=== PATIENT | male | born 1975 | race Two or more races ===

== ENCOUNTER 2018-07-06 21:30 | Emergency (ER) | payer MEDICAID ==
[~2018-07-06] VITALS: Ht 165.1 cm; Wt 79.4 kg
--- NOTE | 2018-07-06 21:48 | NUR ---
ED Nurse Note: pt walked in c/o left lower leg pain, pt states he was playing soccer earlier and somebody kicked his leg and started having pain since then. no obvious injury noted, skin intact, cms intact BLE, will cont monitor.
[2018-07-06] MEDS ORDERED: IBUPROFEN600 MG ORAL (22:52)
[2018-07-06] MEDS ORDERED: ACETAMINOPHEN-1 EAC1 ORAL (22:52)
[2018-07-06 23:00] VITALS: BP 128/97
--- NOTE | 2018-07-06 23:00 | NUR ---
ED Nurse Note: pt cleared to be d/c per ERMD, pt discharge and aftercare instruction provided w/ prescription, pt education done via discussion and handout, pt advised to follow up with pcp or return to ed if changes in condition, pt verbalized understanding and agrees with plan, vss, ambulatory w/ steady gait, left w/ all belongings. pt accompanied by .
--- NOTE | 2018-07-06 23:06 | Emergency Room Report ---
History of Present Illness General Chief Complaint: Lower Extremity Injury Source: Patient Present Illness HPI 43-year-old male presents ED for evaluation. Complaining of left calf pain. States that he was kicked in the left calf one week ago while playing soccer. He is having persistent pain since. Pain is dull, 7 out of 10, nonradiating. Is able to walk but with difficulty. Denies any other injuries. No other aggravating relieving factors. Denies any other associated symptoms Allergies: Coded Allergies: No Known Allergies (Unverified , 07/06/18) Patient History Past Medical History: HTN Past Surgical History: none Pertinent Family History: none Social History: Denies: smoking, alcohol use, drug use Immunizations: UTD Reviewed Nursing Documentation: PMH: Agreed; PSxH: Agreed Nursing Documentation-PMH Past Medical History: No History, Except For Hx Hypertension: Yes Review of Systems All Other Systems: negative except mentioned in HPI Physical Exam Vital Signs Date Time Temp Pulse Resp B/P (MAP) Pulse Ox O2 Delivery O2 Flow Rate FiO2 07/06/18 21:34 98.2 73 14 95 Room Air 07/06/18 23:00 128/97 Sp02 EP Interpretation: reviewed, normal General Appearance: no apparent distress, alert, GCS 15, non-toxic Head: normocephalic Eyes: bilateral eye normal inspection, bilateral eye PERRL ENT: normal ENT inspection Neck: normal inspection Respiratory: normal inspection Cardiovascular #1: normal inspection Gastrointestinal: normal inspection Rectal: deferred Genitourinary: no CVA tenderness Musculoskeletal: calf tenderness - left Neurologic: alert, oriented x3, responsive, motor strength/tone normal, sensory intact, speech normal Psychiatric: normal inspection Skin: normal inspection Lymphatic: normal inspection Medical Decision Making Diagnostic Impression: Primary Impression: Injury of calf ER Course Hospital Course 43 yo M presents to ED c/o L calf pain s/p kicked in calf Differential diagnoses include: Fracture, dislocation, sprain, contusion Clinical course Patient placed on stretcher. After initial history and physical, I ordered pain medications and Xrays of L tibfib Xrays read shows no acute fracture/dislocation. Negative Sanchez test. No sign of Achilles rupture. Pain appears to be muscular. Discussed findings with patient. May benefit from outpatient or through evaluation and possible MRI. We'll provide ortho referrals. Given crutches Diagnosis - injury of calf Stable and discharged to home with prescription for Motrin, tylenol #3. weight bear as tolerated. Followup with PMD/ortho. Return to ED if symptoms recur or worsen Other X-Ray Diagnostic Results Other X-Ray Diagnostic Results : X-Ray ordered: L tibfib # of Views/Limited Vs Complete: 2 View Indication: Pain EP Interpretation: Yes Interpretation: no dislocation, no soft tissue swelling, no fractures Impression: No acute disease Electronically Signed by: Electronically signed by Drew Bains MD Last Vital Signs Date Time Temp Pulse Resp B/P (MAP) Pulse Ox O2 Delivery O2 Flow Rate FiO2 07/06/18 23:00 98.3 87 18 128/97 100 Room Air Status: improved Disposition: HOME, SELF-CARE Condition: Stable Scripts Acetaminophen With Codeine (T#3) (TYLENOL #3 TAB*) Y Tab 1 TAB ORAL Q8H PRN for For Pain for 3 Days, TAB Prov: Drew Bains MD 07/06/18 Ibuprofen* (MOTRIN*) 600 Mg Tablet 600 MG ORAL Q8H PRN for For Pain, #30 TAB 0 Refills Prov: Drew Bains MD 07/06/18 [facility] Open 24 hour /7 days a week by Appointment Only [address] [place] [id number] Patient Instructions: Muscle Strain, [id number] Drew Bains MD July 06, 2018 23:06
--- NOTE | 2018-07-07 23:53 | Diagnostic Imaging Report ---
EXAM: XR Left Tibia and Fibula, 2 Views CLINICAL HISTORY: PAIN TECHNIQUE: Frontal and lateral views of the left tibia and fibula. COMPARISON: No relevant prior studies available. FINDINGS: Bones/joints: No acute fracture. Soft tissues: No radiodense foreign body. IMPRESSION: No acute fracture.
== END 2018-07-06 23:00 | disposition home or self-care (01) ==
LOC: EMR 22:00
DX: S89.92XA Unspecified injury of left lower leg, initial encounter (principal); W50.1XXA Accidental kick by another person, initial encounter; Y93.66 Activity, soccer; Y92.9 Unspecified place or not applicable; I10 Essential (primary) hypertension
CPT/HCPCS: 99283

== ENCOUNTER 2018-08-13 18:01 | Inpatient (IN) | payer MEDICAID ==
[~2018-08-13] VITALS: Ht 165.1 cm; Wt 83.6 kg
[~2018-08-13 18:01] MED LIST: ACETAMINOPHEN-1 EAC1 ORAL; IBUPROFEN600 MG ORAL; LR 1000ml ONE; NS Irrig 1000ml ONE; Sterile Water Irrig 1000ml IRRIG ONE
[2018-08-13] MEDS ORDERED: Lidocaine 2% Visc 15ml soln ORAL ONE (18:15)
[2018-08-13] MEDS ORDERED: Mylanta II UD 30ml ORAL ONE (18:15)
[2018-08-13] MEDS ORDERED: Dicyclomine HCl 10mg/5ml oral soln ORAL ONE (18:15)
[2018-08-13 18:20] VITALS: BP 142/90
--- NOTE | 2018-08-13 18:20 | NUR ---
ED Nurse Note: pt walked in to ER from home due to abdominal pain 12/12 which started 0100 this morning. pt denied N/V/D and consuming food which might cause pain. pt aao x4 and ambulatory. skin clean and intact.
--- NOTE | 2018-08-13 18:36 | Emergency Room Report ---
History of Present Illness General Chief Complaint: Abdominal Pain Source: Patient Present Illness HPI Patient presents with complaints of mid abdominal pain fairly diffuse started last night Denies any vomiting or diarrhea patient reports that he was unable to sleep last night as the pain persisted he presents to the ER denies any constipation denies any recent trauma denies any chest pain or shortness of breath Pain is cramping and sharp 5 out of 10 Allergies: Coded Allergies: No Known Allergies (Unverified , 07/06/18) Patient History Past Medical History: see triage record Pertinent Family History: none Reviewed Nursing Documentation: PMH: Agreed; PSxH: Agreed Nursing Documentation-PMH Past Medical History: No History, Except For Hx Hypertension: Yes Review of Systems All Other Systems: negative except mentioned in HPI Physical Exam Vital Signs Date Time Temp Pulse Resp B/P (MAP) Pulse Ox O2 Delivery O2 Flow Rate FiO2 08/13/18 18:08 98.2 74 20 138/91 (107) 100 Room Air Sp02 EP Interpretation: reviewed, normal General Appearance: well appearing, no apparent distress Head: normocephalic, atraumatic Eyes: bilateral eye PERRL, bilateral eye EOMI ENT: hearing grossly normal, normal pharynx, TMs + canals normal, uvula midline Neck: full range of motion, supple, no meningismus, no bony tend Respiratory: lungs clear, normal breath sounds, no rhonchi, no respiratory distress, no retraction, no accessory muscle use Cardiovascular #1: normal peripheral pulses, regular rate, rhythm, no edema, no gallop, no JVD, no murmur Gastrointestinal: normal bowel sounds, non tender - However subjectively points to mid epigastric region, soft, no mass, no organomegaly, non-distended, no guarding, no hernia, no pulsatile mass, no rebound Genitourinary: no CVA tenderness Musculoskeletal: back normal Neurologic: oriented x3, responsive, manager pet III-XII nml as tested, motor strength/ tone normal, sensory intact Psychiatric: mood/affect normal Skin: normal color, no rash, warm/dry, palpation normal Lymphatic: normal inspection, no adenopathy Procedures Critical Care Time Critical Care Time 40 minutes for critical findings, concern for endorgan injury failure, possible not including any procedural time Medical Decision Making Diagnostic Impression: Primary Impression: Acute appendicitis ER Course Patient is a fairly complex case, with multiple differentials, including but not limited to, cardiac, cardiopulmonary, vascular emergencies. Patient has extensive labs and imaging studies initiated. Other differentials such as cholecystitis, appendicitis, colitis considered patient's blood work reveals elevatedWhite blood cell count CT results shows evidence of acute appendicitis Antibiotics are initiated general surgery is also contacted patient Nothing by mouth and admitted for further care Labs Test 08/13/18 18:20 08/14/18 05:20 08/15/18 05:54 White Blood Count 22.1 K/UL (4.8-10.8) 14.4 K/UL (4.8-10.8) 9.0 K/UL (4.8-10.8) Red Blood Count 4.68 M/UL (4.70-6.10) 4.41 M/UL (4.70-6.10) 4.08 M/UL (4.70-6.10) Hemoglobin 14.4 G/DL (14.2-18.0) 13.7 G/DL (14.2-18.0) 12.6 G/DL (14.2-18.0) Hematocrit 39.8 % (42.0-52.0) 38.0 % (42.0-52.0) 35.7 % (42.0-52.0) Mean Corpuscular Volume 85 FL (80-99) 86 FL (80-99) 87 FL (80-99) Mean Corpuscular Hemoglobin 30.7 PG (27.0-31.0) 31.1 PG (27.0-31.0) 30.8 PG (27.0-31.0) Mean Corpuscular Hemoglobin Concent 36.1 G/DL (32.0-36.0) 36.0 G/DL (32.0-36.0) 35.3 G/DL (32.0-36.0) Red Cell Distribution Width 11.5 % (11.6-14.8) 11.6 % (11.6-14.8) 11.7 % (11.6-14.8) Platelet Count 279 K/UL (150-450) 232 K/UL (150-450) 213 K/UL (150-450) Mean Platelet Volume 6.6 FL (6.5-10.1) 6.9 FL (6.5-10.1) 7.0 FL (6.5-10.1) Neutrophils (%) (Auto) % (45.0-75.0) % (45.0-75.0) % (45.0-75.0) Lymphocytes (%) (Auto) % (20.0-45.0) % (20.0-45.0) % (20.0-45.0) Monocytes (%) (Auto) % (1.0-10.0) % (1.0-10.0) % (1.0-10.0) Eosinophils (%) (Auto) % (0.0-3.0) % (0.0-3.0) % (0.0-3.0) Basophils (%) (Auto) % (0.0-2.0) % (0.0-2.0) % (0.0-2.0) Differential Total Cells Counted 100 100 Neutrophils % (Manual) 82 % (45-75) 94 % (45-75) Lymphocytes % (Manual) 8 % (20-45) 3 % (20-45) Monocytes % (Manual) 5 % (1-10) 1 % (1-10) Eosinophils % (Manual) 0 % (0-3) 0 % (0-3) Basophils % (Manual) 0 % (0-2) 0 % (0-2) Band Neutrophils 5 % (0-8) 2 % (0-8) Platelet Estimate Adequate Adequate Platelet Morphology Normal Normal Red Blood Cell Morphology Normal Normal Sodium Level 136 MMOL/L (136-145) 137 MMOL/L (136-145) 139 MMOL/L (136-145) Potassium Level 3.4 MMOL/L (3.5-5.1) 3.5 MMOL/L (3.5-5.1) 3.8 MMOL/L (3.5-5.1) Chloride Level 100 MMOL/L (98-107) 104 MMOL/L (98-107) 106 MMOL/L (98-107) Carbon Dioxide Level 21 MMOL/L (21-32) 25 MMOL/L (21-32) 22 MMOL/L (21-32) Anion Gap 15 mmol/L (5-15) 8 mmol/L (5-15) 11 mmol/L (5-15) Blood Urea Nitrogen 13 mg/dL (7-18) 13 mg/dL (7-18) 16 mg/dL (7-18) Creatinine 1.4 MG/DL (0.55-1.30) 1.3 MG/DL (0.55-1.30) 1.3 MG/DL (0.55-1.30) Estimat Glomerular Filtration Rate 55.6 mL/min (>60) > 60 mL/min (>60) > 60 mL/min (>60) Glucose Level 111 MG/DL (74-106) 104 MG/DL (74-106) 130 MG/DL (74-106) Calcium Level 9.2 MG/DL (8.5-10.1) 8.9 MG/DL (8.5-10.1) 8.3 MG/DL (8.5-10.1) Total Bilirubin 1.6 MG/DL (0.2-1.0) Direct Bilirubin 0.3 MG/DL (0.0-0.3) Aspartate Amino Transf (AST/SGOT) 32 U/L (15-37) Alanine Aminotransferase (ALT/SGPT) 56 U/L (12-78) Alkaline Phosphatase 62 U/L (46-116) Total Protein 8.0 G/DL (6.4-8.2) Albumin 4.5 G/DL (3.4-5.0) Globulin 3.5 g/dL Albumin/Globulin Ratio 1.3 (1.0-2.7) Lipase 112 U/L (73-393) Prothrombin Time 9.9 SEC (9.30-11.50) 9.7 SEC (9.30-11.50) Prothromb Time International Ratio 0.9 (0.9-1.1) 0.9 (0.9-1.1) Activated Partial Thromboplast Time 29 SEC (23-33) 27 SEC (23-33) Rhythm Strip Diag. Results EP Interpretation: yes Rate: 80 Rhythm: NSR, no PVC's, no ectopy CT/MRI/US Diagnostic Results CT/MRI/US Diagnostic Results : Impression CT abdomen pelvisImpression: Positive for uncomplicated acute appendicitis Fatty liver Subcentimeter low-attenuation left renal lesions, too small to characterize, most likely benign simple cysts. No further follow-up necessary Dependent basilar pulmonary atelectatic changes Last Vital Signs Date Time Temp Pulse Resp B/P (MAP) Pulse Ox O2 Delivery O2 Flow Rate FiO2 08/13/18 18:08 98.2 74 20 138/91 (107) 100 Room Air Status: improved Disposition: ADMITTED INPATIENT Condition: Serious Carlos Miner DO Aug 13, 2018 18:36
--- NOTE | 2018-08-13 18:40 | NUR ---
ED Nurse Note: pt signed on CT with constrast with fully understanding.
[2018-08-13] MEDS ORDERED: Ketorolac 30mg Inj IV ONE (18:45)
[2018-08-13] MEDS ORDERED: Isovue-300 100ml vial INJ PRN (18:45)
[2018-08-13 18:50] LABS: ANION GAP 15 mmol/L (5-15); BLOOD UREA NITROGEN 13 mg/dL (7-18); CALCIUM 9.2 MG/DL (8.5-10.1); CARBON DIOXIDE 21 MMOL/L (21-32); CHLORIDE 100 MMOL/L (98-107); CREATININE 1.4 MG/DL (0.55-1.30); HEMATOCRIT 39.8 % (42.0-52.0); HEMOGLOBIN 14.4 G/DL (14.2-18.0); MEAN CORPUSCULAR VOLUME 85 FL (80-99); PLATELET COUNT 279 K/UL (150-450); POTASSIUM 3.4 MMOL/L (3.5-5.1); RED BLOOD COUNT 4.68 M/UL (4.70-6.10); RED CELL DISTRIBUTION WIDTH 11.5 % (11.6-14.8); SODIUM 136 MMOL/L (136-145)
[2018-08-13 18:54] LABS: WHITE BLOOD COUNT 22.1 K/UL (4.8-10.8)
--- NOTE | 2018-08-13 18:55 | NUR ---
ED Nurse Note: pt went down to CT with stable condition.
[2018-08-13 19:00] LABS: ALANINE AMINOTRANSFERASE 56 U/L (12-78); ALBUMIN 4.5 G/DL (3.4-5.0); ALBUMIN/GLOBULIN RATIO 1.3 (1.0-2.7); ALKALINE PHOSPHATASE 62 U/L (46-116); ASPARTATE AMINO TRANSFERASE 32 U/L (15-37); BILIRUBIN,TOTAL 1.6 MG/DL (0.2-1.0)
[2018-08-13 19:01] LABS: BILIRUBIN,DIRECT 0.3 MG/DL (0.0-0.3)
[2018-08-13 19:10] VITALS: BP 153/95
--- NOTE | 2018-08-13 19:12 | NUR ---
ED Nurse Note: pt came back from CT scan in stable condition.
--- NOTE | 2018-08-13 19:15 | NUR ---
HAND-OFF: Report given to DONNY Escobar. pt just came back from CT in stable condition and no orders to carry at this moment.
--- NOTE | 2018-08-13 19:18 | NUR ---
ED Nurse Note: Received report from Eyad Robles RN. Pt in bed awake with visitor at bedside. Pt states abdominal pain is 10/10 at this time. Will see when last pain Rx was administered and see if possible to get order from ER MD. Will continue to monitor.
--- NOTE | 2018-08-13 19:20 | NUR ---
ED Nurse Note: Pain Rx was just given. Will re-assess when due; see eMAR.
[2018-08-13] MEDS ORDERED: Piperacillin/Tazobactam 3.375 GM in NS 110 ML IVPB ONE (19:30)
--- NOTE | 2018-08-13 20:23 | NUR ---
ED Nurse Note: Pt awake, talking to his visitor. No distress noted. IVPB Zosyn complete. Will continue to monitor.
[2018-08-13 20:30] VITALS: BP 140/80
[2018-08-13] MEDS ORDERED: Mylanta II UD 30ml ORAL PRN (20:40)
[2018-08-13] MEDS ORDERED: Morphine Sulfate 2mg/ml Inj(IV/IM USE ONLY) IVP PRN ×2 (20:42)
[2018-08-13] MEDS ORDERED: Milk of Magnesia 30ml Ud ORAL PRN (21:00)
--- NOTE | 2018-08-13 21:20 | NUR ---
TRANSFER TO FLOOR: Patient transferred to [facility] as ordered, per MD Eisenberg. Report given to Roque HINES. Belongings and medications given to Roque HINES. Family at bedside during time of transfer.
[2018-08-13] MEDS: NS w/KCl 20mEq 1000ml 1,000 ML IV SCH (22:00)
[2018-08-13] MEDS: Morphine Sulfate 4mg/ml Inj (IV USE ONLY) IVP PRN (22:52)
--- NOTE | 2018-08-13 23:20 | NUR ---
NURSE NOTES: Patient admitted on the floor via gurney accompanied by RN. Admission orders done. MD notified of patients arrival on the floor. PRN pain medication given for 8/10 lower abdominal pain. Belongings list signed by patient. NPO status reinforced to patient. Needs attended. Due meds given. IV fluids tolerated well. Call light within reach. Bed is locked and in low position. In stable condition.
[2018-08-14] VITALS (15 sets, daily range): BP systolic 110–140; BP diastolic 54–94
--- NOTE | 2018-08-14 00:47 | NUR ---
NURSE NOTES: Unable to complete med recon. Patient and family doesn't remember patients medications he's taking at home. Per patient a family member will bring his medications tomorrow morning.
[2018-08-14] MEDS: Morphine Sulfate 4mg/ml Inj (IV USE ONLY) IVP PRN ×2 (04:44→09:05)
[2018-08-14] MEDS: Piperacillin/Tazobactam 3.375 GM in NS 110 ML IVPB SCH ×3 (05:04→21:34)
[2018-08-14 06:58] LABS: HEMOGLOBIN 13.7 G/DL (14.2-18.0); MEAN CORPUSCULAR VOLUME 86 FL (80-99); PLATELET COUNT 232 K/UL (150-450); RED BLOOD COUNT 4.41 M/UL (4.70-6.10); RED CELL DISTRIBUTION WIDTH 11.6 % (11.6-14.8); WHITE BLOOD COUNT 14.4 K/UL (4.8-10.8)
[2018-08-14 07:12] LABS: ANION GAP 8 mmol/L (5-15); BLOOD UREA NITROGEN 13 mg/dL (7-18); CALCIUM 8.9 MG/DL (8.5-10.1); CARBON DIOXIDE 25 MMOL/L (21-32); CHLORIDE 104 MMOL/L (98-107); CREATININE 1.3 MG/DL (0.55-1.30); POTASSIUM 3.5 MMOL/L (3.5-5.1); SODIUM 137 MMOL/L (136-145)
--- NOTE | 2018-08-14 07:30 | NUR ---
NURSE NOTES: Patient lying in bed awake. Complain of pain 8/10 and will give pain medication as ordered. Skin intact and dry. IV dressing intact and dry. Bed lowest position. Call light within reach. Will continue to monitor.
[2018-08-14 07:34] LABS: INR 0.9 (0.9-1.1)
[2018-08-14] MEDS: NS w/KCl 20mEq 1000ml 1,000 ML IV SCH (08:48)
--- NOTE | 2018-08-14 10:08 | GI Initial Consult Note ---
History of Present Illness General Date patient seen: Aug 14, 2018 Time patient seen: 10:04 Reason for Hospitalization: Abdominal Pain Referring physician: NOÉ DE LA FUENTE Reason for Consultation: Abdominal Pain Present Illness HPI Patient presents with complaints of mid abdominal pain fairly diffuse started last night Denies any vomiting or diarrhea patient reports that he was unable to sleep last night as the pain persisted he presents to the ER denies any constipation denies any recent trauma denies any chest pain or shortness of breath Pain is cramping and sharp 5 out of 10 GI consulted for abdominal pain. Patient was seen, awake alert and oriented x4 no apparent distress. The patient has complaint of severe abdominal pain, tender to touch in all quadrants on exam. Patient states his initial onset began approximately 3 days ago. Has no prior episodes of similar abdominal pain. Patient denies any nausea vomiting. Denies any diarrhea or constipation. Abdomen is soft, nondistended. Patient has no history of endoscopic or colonoscopy. Labs reviewed; WBC 14.4, no anemia, no transaminitis. Home Meds Active Scripts Acetaminophen With Codeine (T#3) (TYLENOL #3 TAB*) Y Tab, 1 TAB ORAL Q8H PRN for For Pain for 3 Days, TAB Prov:Drew Bains MD 07/06/18 Ibuprofen* (MOTRIN*) 600 Mg Tablet, 600 MG ORAL Q8H PRN for For Pain, #30 TAB 0 Refills Prov:Drew Bains MD 07/06/18 Med list reviewed/reconciled: Yes Allergies: Coded Allergies: No Known Allergies (Unverified , 07/06/18) Patient History History Provided By: Patient, Medical Record PMH Narrative Past Medical History: see triage record Pertinent Family History: none Reviewed Nursing Documentation: PMH: Agreed; PSxH: Agreed Nursing Documentation-PMH Past Medical History: No History, Except For Hx Hypertension: Yes Social History: Denies: smoking, alcohol use, drug use, other Review of Systems All Other Systems: negative except mentioned in HPI Physical Exam Vital Signs Date Time Temp Pulse Resp B/P (MAP) Pulse Ox O2 Delivery O2 Flow Rate FiO2 08/13/18 18:08 98.2 74 20 138/91 (107) 100 Room Air Sp02 EP Interpretation: reviewed, normal Labs Laboratory Tests Test 08/13/18 18:20 08/14/18 05:20 White Blood Count 22.1 K/UL (4.8-10.8) *H 14.4 K/UL (4.8-10.8) H Red Blood Count 4.68 M/UL (4.70-6.10) L 4.41 M/UL (4.70-6.10) L Hemoglobin 14.4 G/DL (14.2-18.0) 13.7 G/DL (14.2-18.0) L Hematocrit 39.8 % (42.0-52.0) L 38.0 % (42.0-52.0) L Mean Corpuscular Volume 85 FL (80-99) 86 FL (80-99) Mean Corpuscular Hemoglobin 30.7 PG (27.0-31.0) 31.1 PG (27.0-31.0) H Mean Corpuscular Hemoglobin Concent 36.1 G/DL (32.0-36.0) H 36.0 G/DL (32.0-36.0) Red Cell Distribution Width 11.5 % (11.6-14.8) L 11.6 % (11.6-14.8) Platelet Count 279 K/UL (150-450) 232 K/UL (150-450) Mean Platelet Volume 6.6 FL (6.5-10.1) 6.9 FL (6.5-10.1) Neutrophils (%) (Auto) % (45.0-75.0) % (45.0-75.0) Lymphocytes (%) (Auto) % (20.0-45.0) % (20.0-45.0) Monocytes (%) (Auto) % (1.0-10.0) % (1.0-10.0) Eosinophils (%) (Auto) % (0.0-3.0) % (0.0-3.0) Basophils (%) (Auto) % (0.0-2.0) % (0.0-2.0) Differential Total Cells Counted 100 Neutrophils % (Manual) 82 % (45-75) H Pending Lymphocytes % (Manual) 8 % (20-45) L Pending Monocytes % (Manual) 5 % (1-10) Eosinophils % (Manual) 0 % (0-3) Basophils % (Manual) 0 % (0-2) Band Neutrophils 5 % (0-8) Platelet Estimate Adequate Pending Platelet Morphology Normal Pending Red Blood Cell Morphology Normal Sodium Level 136 MMOL/L (136-145) 137 MMOL/L (136-145) Potassium Level 3.4 MMOL/L (3.5-5.1) L 3.5 MMOL/L (3.5-5.1) Chloride Level 100 MMOL/L (98-107) 104 MMOL/L (98-107) Carbon Dioxide Level 21 MMOL/L (21-32) 25 MMOL/L (21-32) Anion Gap 15 mmol/L (5-15) 8 mmol/L (5-15) Blood Urea Nitrogen 13 mg/dL (7-18) 13 mg/dL (7-18) Creatinine 1.4 MG/DL (0.55-1.30) H 1.3 MG/DL (0.55-1.30) Estimat Glomerular Filtration Rate 55.6 mL/min (>60) > 60 mL/min (>60) Glucose Level 111 MG/DL (74-106) H 104 MG/DL (74-106) Calcium Level 9.2 MG/DL (8.5-10.1) 8.9 MG/DL (8.5-10.1) Total Bilirubin 1.6 MG/DL (0.2-1.0) H Direct Bilirubin 0.3 MG/DL (0.0-0.3) Aspartate Amino Transf (AST/SGOT) 32 U/L (15-37) Alanine Aminotransferase (ALT/SGPT) 56 U/L (12-78) Alkaline Phosphatase 62 U/L (46-116) Total Protein 8.0 G/DL (6.4-8.2) Albumin 4.5 G/DL (3.4-5.0) Globulin 3.5 g/dL Albumin/Globulin Ratio 1.3 (1.0-2.7) Lipase 112 U/L (73-393) Prothrombin Time 9.9 SEC (9.30-11.50) Prothromb Time International Ratio 0.9 (0.9-1.1) Activated Partial Thromboplast Time 29 SEC (23-33) General Appearance: well appearing, no apparent distress, alert Head: normocephalic EENT: PERRL/EOMI, normal ENT inspection Neck: supple Respiratory: normal breath sounds, no respiratory distress Cardiovascular: normal rate Gastrointestinal: normal inspection, non tender, soft, normal bowel sounds, non -distended Rectal: deferred Genitourinary: deferred Musculoskeletal: normal inspection, back normal Neurologic: normal inspection, alert, oriented x3, responsive Psychiatric: normal inspection, judgement/insight normal, memory normal Skin: normal inspection, normal color, no rash, warm/dry, palpation normal, well hydrated Lymphatic: normal inspection, no adenopathy Current Medications Current Medications Medications (Trade) Dose Ordered Sig/Joann Route PRN Reason Start Time Stop Time Status Last Admin Dose Admin Acetaminophen (Tylenol) 650 mg Q4H PRN ORAL fever 08/13/18 20:39 09/12/18 20:38 Al Hydroxide/Mg Hydroxide (Mylanta II) 30 ml Q6H PRN ORAL dyspepsia 08/13/18 20:40 09/12/18 20:39 Bisacodyl (Dulcolax) 10 mg HSPRN PRN RECTAL Constipation 08/13/18 21:00 09/12/18 20:59 Dextrose (Dextrose 50%) 25 ml Q30M PRN IV Hypoglycemia 08/13/18 20:40 09/12/18 20:39 Dextrose (Dextrose 50%) 50 ml Q30M PRN IV Hypoglycemia 08/13/18 20:40 09/12/18 20:39 Diphenhydramine HCl (Benadryl) 25 mg Q6H PRN ORAL Itching/Pruritis 08/13/18 20:39 09/12/18 20:38 Famotidine (Pepcid) 40 mg DAILY ORAL 08/14/18 09:00 09/13/18 08:59 08/14/18 08:48 Iopamidol (Isovue-300 100ml) 100 ml NOW PRN INJ Radiology Procedure 08/13/18 18:45 Magnesium Hydroxide (Mom) 30 ml HSPRN PRN ORAL Constipation 08/13/18 21:00 09/12/18 20:59 Morphine Sulfate (Morphine Sulfate) 1 mg Q3H PRN IVP Mild Pain(1-3) 08/13/18 20:42 08/20/18 20:41 Morphine Sulfate (Morphine Sulfate) 2 mg Q3H PRN IVP Moderate Pain (Pain Scale 4-6) 08/13/18 20:42 08/20/18 20:41 Morphine Sulfate (Morphine Sulfate) 4 mg Q3H PRN IVP Severe Pain (Pain Scale 7-10) 08/13/18 20:42 08/20/18 20:41 08/14/18 09:05 Ondansetron HCl (Zofran) 4 mg Q6H PRN IVP Nausea & Vomiting 08/13/18 20:39 09/12/18 20:38 Piperacillin Sod/ Tazobactam Sod 3.375 gm/Sodium Chloride 110 ml @ 220 mls/hr EVERY 8 HOURS IVPB 08/14/18 05:00 08/21/18 04:59 08/14/18 05:04 Potassium Chloride/Sodium Chloride 1,000 ml @ 100 mls/hr Q10H IV 08/13/18 22:00 09/12/18 21:59 08/14/18 08:48 Temazepam (Restoril) 15 mg HSPRN PRN ORAL Insomnia 08/13/18 21:00 08/20/18 20:59 GI: Plan Problems: (1) Acute appendicitis (2) Leukocytosis, unspecified Plan Abdominal pelvis CT taken, pending final read Abdominal pain most likely due to appendicitis, follow-up surgical recommendations Maintain n.p.o. plus IV fluids Pain management PPI Zofran as needed follow labs Discussed with Dr. Reynoso. Thank you for this patient referral, we will follow. The patient was seen and examined at bedside and all new and available data was reviewed in the patients chart. I agree with the above findings, impression and plan. (Patient seen earlier today. Signature stamp does not reflect patient encounter time.). - MD Yari Layton,[facility] [employer] OFFICER Aug 14, 2018 10:08
--- NOTE | 2018-08-14 10:50 | NUR ---
CASE MANGER REVIEW 43 Y/O MALE FROM HOME CAME TO [facility] [place] [facility] CC:ABDOMINAL PAIN SI:ACUTE APPENDICITIS VS: BP 153/95, P 74, T 98.3, RR 21, SpO2 100 WBC 22.1, RBC 4.68, Hct 39.8, K 3.4, CR 1.4 IS:ZOSYN 110ml IVPB NS x1L IV TORADOL 30mg IV MYLANTA 30ml LIDOCAINE HCI 10ml DICYCLOMINE HCI 10mg ADMITTED TO MED/SURG DCP: RETURN HOME
--- NOTE | 2018-08-14 11:15 | NUR ---
NURSE NOTES: Patient off unit for surgery in stable condition. IV patent.
--- NOTE | 2018-08-14 11:28 | Pre-Procedure Note/Attestation ---
Pre-Procedure Note/Attestation Complete Prior to Procedure Planned Procedure: not applicable Procedure Narrative: laparoscopic appendectomy possible open Indications for Procedure Pre-Operative Diagnosis: appendicitis Attestation I attest that I discussed the nature of the procedure; its benefits; risks and complications; and alternatives (and the risks and benefits of such alternatives ), prior to the procedure, with the patient (or the patient's legal key account representative). I attest that, if there was a reasonable possibility of needing a blood transfusion, the patient (or the patient's legal key account representative) was given the [facility] standardized written summary, pursuant to the [place] Blood Safety Act ([place] Health and Safety Code # 1645, as amended). I attest that I re-evaluated the patient just prior to the surgery and that there has been no change in the patient's H&P, except as documented below: Samuel Goncalves Aug 14, 2018 11:28
--- NOTE | 2018-08-14 11:30 | Diagnostic Imaging Report ---
Clinical Indication: Abdominal pain Technique: No oral contrast utilized, per emergency room physician request IV administration nonionic contrast. Venous phase spiral acquisition obtained through the abdomen and pelvis. Multiplanar reconstructions were generated. Total dose length product 677.06 mGycm. CTDIvol(s) 12.84 mGy. Dose reduction achieved using automated exposure control Comparison: none Findings: The appendix is dilated and fluid-filled, measures up to 15 mm in diameter. There is some infiltration of the fat immediately surrounding it. No extra luminal gas or fluid is evident. Prominent lymph nodes are seen in the right lower quadrant. Small amount of contrast, presumably from an earlier exam, is seen within the colon. No evidence of diverticulosis or diverticulitis. No small bowel distention. No free or loculated intraperitoneal gas or fluid is evident. Distal esophagus, stomach, duodenum are unremarkable. No free or loculated intraperitoneal gas or fluid is evident. The liver is diffusely hypoattenuating, consistent with fatty change.. Is also mildly enlarged. No focal abnormality demonstrated. The gallbladder, bile ducts, pancreas, spleen, adrenals are unremarkable. The right kidney is unremarkable. The left kidney demonstrates a few subcentimeter low-attenuation lesions which are too small to characterize. No renal or ureteral calculi, hydronephrosis, or hydroureter. No retroperitoneal or mesenteric mass or adenopathy. No pelvic mass or adenopathy. The included lung bases demonstrate posterior dependent atelectatic changes. The bones are unremarkable. Impression: Positive for uncomplicated acute appendicitis Fatty liver Subcentimeter low-attenuation left renal lesions, too small to characterize, most likely benign simple cysts. No further follow-up necessary Dependent basilar pulmonary atelectatic changes This agrees with the preliminary interpretation provided overnight by Dr. Michel The CT scanner at [facility] is accredited by the [employer] and the scans are performed using protocols designed to limit radiation exposure to as low as reasonably achievable to attain images of sufficient resolution adequate for diagnostic evaluation.
--- NOTE | 2018-08-14 11:35 | Consultation ---
History of Present Illness General Date patient seen: Aug 14, 2018 Reason for Hospitalization: Abdominal Pain Present Illness HPI 43 year old male presented to ED with complaints of worsening RLQ abdominal pain for 3 days. +nausea. no prior symptoms. nml bm. labs as below. CT with acute appendicitis. surgery called to evaluate. patient seen, chart reviewed, patient examined. Allergies: Coded Allergies: No Known Allergies (Unverified , 07/06/18) Medication History Scheduled PRN Acetaminophen With Codeine (T#3) (Tylenol #3 Tab*), 1 TAB ORAL Q8H PRN for For Pain Ibuprofen* (Motrin*), 600 MG ORAL Q8H PRN for For Pain Patient History History Provided By: Patient, Family Member, Medical Record, PMD Healthcare decision maker Resuscitation status Full Code Advanced Directive on File Past Medical/Surgical History Past Medical/Surgical History: (1) Injury of calf (2) Acute appendicitis (3) Leukocytosis, unspecified Review of Systems Review of Symptoms General ROS: no weight loss or fever Psychological ROS: no depression or mood changes, no memory loss Ophthalmic ROS: no visual changes or eye irritation ENT ROS: no nasal congestion, hearing loss, dizziness Allergy and Immunology ROS: no allergic symptoms or urticaria Hematological and Lymphatic ROS: no swollen glands, unusual bleeding or bruising Endocrine ROS: no polyuria, polydipsia, weight changes, temperature intolerance Respiratory ROS: no cough, shortness of breath, or wheezing Cardiovascular ROS: no chest pain or dyspnea on exertion Gastrointestinal ROS: abdominal pain, no bright red blood in stool. Musculoskeletal ROS: no myalgias or arthralgias Neurological ROS: no TIA or stroke symptoms Dermatological ROS: no new or changing skin lesions, rashes or pruritis Physical Exam Physical Exam General appearance: alert, cooperative, no distress, appears stated age Head: Normocephalic, without obvious abnormality, atraumatic Eyes: conjunctivae/corneas clear. PERRL, EOM's intact. Fundi benign Throat: Lips, mucosa, and tongue normal. Teeth and gums normal Neck: supple, symmetrical, trachea midline, no adenopathy, thyroid: not enlarged, symmetric, no tenderness/mass/nodules, no carotid bruit and no JVD Lungs: clear to auscultation bilaterally Heart: regular rate and rhythm, S1, S2 normal, no murmur, click, rub or gallop Abdomen: soft, RLQ tender with rebound and guarding. Bowel sounds normal. No masses, no organomegaly Extremities: extremities normal, atraumatic, no cyanosis or edema Pulses: 2+ and symmetric Skin: Skin color, texture, turgor normal. No rashes or lesions Neurologic: Grossly normal Last 24 Hour Vital Signs Date Time Temp Pulse Resp B/P (MAP) Pulse Ox O2 Delivery O2 Flow Rate FiO2 08/14/18 08:00 99.7 85 20 140/94 (109) 97 08/14/18 04:00 99.8 84 18 140/81 (100) 98 08/14/18 00:00 98.9 77 18 132/80 (97) 97 08/13/18 22:30 Room Air 08/13/18 21:20 75 21 140/85 98 Room Air 08/13/18 20:30 98.2 84 24 140/80 97 Room Air 08/13/18 19:25 98.3 08/13/18 19:10 98.2 74 21 153/95 98 Room Air 08/13/18 18:20 74 20 Room Air 08/13/18 18:20 98.2 73 20 142/90 100 Room Air 08/13/18 18:08 98.2 74 20 138/91 (107) 100 Room Air Intake and Output 08/13/18 08/14/18 19:00 07:00 Intake Total 0 ml 1200 ml Balance 0 ml 1200 ml Intake Oral 0 ml IV Total 1200 ml # Voids 1 Laboratory Tests Test 08/13/18 18:20 08/14/18 05:20 White Blood Count 22.1 K/UL (4.8-10.8) *H 14.4 K/UL (4.8-10.8) H Red Blood Count 4.68 M/UL (4.70-6.10) L 4.41 M/UL (4.70-6.10) L Hemoglobin 14.4 G/DL (14.2-18.0) 13.7 G/DL (14.2-18.0) L Hematocrit 39.8 % (42.0-52.0) L 38.0 % (42.0-52.0) L Mean Corpuscular Volume 85 FL (80-99) 86 FL (80-99) Mean Corpuscular Hemoglobin 30.7 PG (27.0-31.0) 31.1 PG (27.0-31.0) H Mean Corpuscular Hemoglobin Concent 36.1 G/DL (32.0-36.0) H 36.0 G/DL (32.0-36.0) Red Cell Distribution Width 11.5 % (11.6-14.8) L 11.6 % (11.6-14.8) Platelet Count 279 K/UL (150-450) 232 K/UL (150-450) Mean Platelet Volume 6.6 FL (6.5-10.1) 6.9 FL (6.5-10.1) Neutrophils (%) (Auto) % (45.0-75.0) % (45.0-75.0) Lymphocytes (%) (Auto) % (20.0-45.0) % (20.0-45.0) Monocytes (%) (Auto) % (1.0-10.0) % (1.0-10.0) Eosinophils (%) (Auto) % (0.0-3.0) % (0.0-3.0) Basophils (%) (Auto) % (0.0-2.0) % (0.0-2.0) Differential Total Cells Counted 100 100 Neutrophils % (Manual) 82 % (45-75) H 94 % (45-75) H Lymphocytes % (Manual) 8 % (20-45) L 3 % (20-45) L Monocytes % (Manual) 5 % (1-10) 1 % (1-10) Eosinophils % (Manual) 0 % (0-3) 0 % (0-3) Basophils % (Manual) 0 % (0-2) 0 % (0-2) Band Neutrophils 5 % (0-8) 2 % (0-8) Platelet Estimate Adequate Adequate Platelet Morphology Normal Normal Red Blood Cell Morphology Normal Normal Sodium Level 136 MMOL/L (136-145) 137 MMOL/L (136-145) Potassium Level 3.4 MMOL/L (3.5-5.1) L 3.5 MMOL/L (3.5-5.1) Chloride Level 100 MMOL/L (98-107) 104 MMOL/L (98-107) Carbon Dioxide Level 21 MMOL/L (21-32) 25 MMOL/L (21-32) Anion Gap 15 mmol/L (5-15) 8 mmol/L (5-15) Blood Urea Nitrogen 13 mg/dL (7-18) 13 mg/dL (7-18) Creatinine 1.4 MG/DL (0.55-1.30) H 1.3 MG/DL (0.55-1.30) Estimat Glomerular Filtration Rate 55.6 mL/min (>60) > 60 mL/min (>60) Glucose Level 111 MG/DL (74-106) H 104 MG/DL (74-106) Calcium Level 9.2 MG/DL (8.5-10.1) 8.9 MG/DL (8.5-10.1) Total Bilirubin 1.6 MG/DL (0.2-1.0) H Direct Bilirubin 0.3 MG/DL (0.0-0.3) Aspartate Amino Transf (AST/SGOT) 32 U/L (15-37) Alanine Aminotransferase (ALT/SGPT) 56 U/L (12-78) Alkaline Phosphatase 62 U/L (46-116) Total Protein 8.0 G/DL (6.4-8.2) Albumin 4.5 G/DL (3.4-5.0) Globulin 3.5 g/dL Albumin/Globulin Ratio 1.3 (1.0-2.7) Lipase 112 U/L (73-393) Prothrombin Time 9.9 SEC (9.30-11.50) Prothromb Time International Ratio 0.9 (0.9-1.1) Activated Partial Thromboplast Time 29 SEC (23-33) Height (Feet): 5 Height (Inches): 5.00 Weight (Pounds): 184 Medications Current Medications Medications (Trade) Dose Ordered Sig/Joann Route PRN Reason Start Time Stop Time Status Last Admin Dose Admin Acetaminophen (Tylenol) 650 mg Q4H PRN ORAL fever 08/13/18 20:39 09/12/18 20:38 Al Hydroxide/Mg Hydroxide (Mylanta II) 30 ml Q6H PRN ORAL dyspepsia 08/13/18 20:40 09/12/18 20:39 Bisacodyl (Dulcolax) 10 mg HSPRN PRN RECTAL Constipation 08/13/18 21:00 09/12/18 20:59 Dextrose (Dextrose 50%) 25 ml Q30M PRN IV Hypoglycemia 08/13/18 20:40 09/12/18 20:39 Dextrose (Dextrose 50%) 50 ml Q30M PRN IV Hypoglycemia 08/13/18 20:40 09/12/18 20:39 Diphenhydramine HCl (Benadryl) 25 mg Q6H PRN ORAL Itching/Pruritis 08/13/18 20:39 09/12/18 20:38 Famotidine (Pepcid) 40 mg DAILY ORAL 08/14/18 09:00 09/13/18 08:59 08/14/18 08:48 Iopamidol (Isovue-300 100ml) 100 ml NOW PRN INJ Radiology Procedure 08/13/18 18:45 Magnesium Hydroxide (Mom) 30 ml HSPRN PRN ORAL Constipation 08/13/18 21:00 09/12/18 20:59 Morphine Sulfate (Morphine Sulfate) 1 mg Q3H PRN IVP Mild Pain(1-3) 08/13/18 20:42 08/20/18 20:41 Morphine Sulfate (Morphine Sulfate) 2 mg Q3H PRN IVP Moderate Pain (Pain Scale 4-6) 08/13/18 20:42 08/20/18 20:41 Morphine Sulfate (Morphine Sulfate) 4 mg Q3H PRN IVP Severe Pain (Pain Scale 7-10) 08/13/18 20:42 08/20/18 20:41 08/14/18 09:05 Ondansetron HCl (Zofran) 4 mg Q6H PRN IVP Nausea & Vomiting 08/13/18 20:39 09/12/18 20:38 Piperacillin Sod/ Tazobactam Sod 3.375 gm/Sodium Chloride 110 ml @ 220 mls/hr EVERY 8 HOURS IVPB 08/14/18 05:00 08/21/18 04:59 08/14/18 05:04 Potassium Chloride/Sodium Chloride 1,000 ml @ 100 mls/hr Q10H IV 08/13/18 22:00 09/12/18 21:59 08/14/18 08:48 Temazepam (Restoril) 15 mg HSPRN PRN ORAL Insomnia 08/13/18 21:00 08/20/18 20:59 Assessment/Plan Problem List: (1) Acute appendicitis Assessment & Plan: 43M acute appendicitis. low grade fevers, leukocytosis, RLQ focal tenderness NPO IV fluids IV Abx to OR for lap vs open appy consent thank you ICD Codes: K35.80 - Unspecified acute appendicitis SNOMED: [id number] Samuel Goncalves Aug 14, 2018 11:35
--- NOTE | 2018-08-14 11:41 | Anethesia Preoperative Eval ---
Anesthesia Pre-op PMH/ROS General Date of Evaluation: Aug 14, 2018 Anesthesiologist: Maurisio ASA Score: ASA 2 Mallampati Score Class I : Soft palate, uvula, fauces, pillars visible Class II: Soft palate, uvula, fauces visible Class III: Soft palate, base of uvula visible Class IV: Only hard plate visible Mallampati Classification: Class II Surgeon: Sacha Diagnosis: Acute appendicitis Surgical Procedure: Lap appy Anesthesia History: none Family History: no anesthesia problems Allergies: Coded Allergies: No Known Allergies (Unverified , 07/06/18) Medications: see eMAR Patient NPO?: Yes NPO Date: Aug 14, 2018 NPO Time: 0000 Past Medical History Cardiovascular: Reports: HTN, other - HLD; Denies: CAD, MT, valve dz, arrhythmia Pulmonary: Denies: asthma, COPD, [place], other Gastrointestinal/Genitourinary: Denies: GERD, CRI, ESRD, other Neurologic/Psychiatric: Denies: dementia, CVA, depression/anxiety, TIA, other Endocrine: Denies: DM, hypothyroidism, steroids, other HEENT: Denies: cataract (L), cataract (R), glaucoma, [place]AM (L), YUHAAVIATAM (R), other Hematology/Immune: Denies: anemia, DVT, bleeding disorder, other Musculoskeletal/Integumentary: Denies: OA, RA, DJD, DDD, edema, other PSxH Narrative: Denies Anesthesia Pre-op Phys. Exam Physician Exam Last Vital Signs Date Time Temp Pulse Resp B/P (MAP) Pulse Ox O2 Delivery O2 Flow Rate FiO2 08/14/18 08:00 99.7 85 20 140/94 (109) 97 08/13/18 22:30 Room Air Constitutional: NAD Cardiovascular: RRR Respiratory: CTA Airway Exam Mallampati Score: Class II MO: full ROM: full Anesthesia Pre-op A/P Labs Hematology Test 08/13/18 18:20 08/14/18 05:20 White Blood Count 22.1 K/UL (4.8-10.8) *H 14.4 K/UL (4.8-10.8) H Red Blood Count 4.68 M/UL (4.70-6.10) L 4.41 M/UL (4.70-6.10) L Hemoglobin 14.4 G/DL (14.2-18.0) 13.7 G/DL (14.2-18.0) L Hematocrit 39.8 % (42.0-52.0) L 38.0 % (42.0-52.0) L Mean Corpuscular Volume 85 FL (80-99) 86 FL (80-99) Mean Corpuscular Hemoglobin 30.7 PG (27.0-31.0) 31.1 PG (27.0-31.0) H Mean Corpuscular Hemoglobin Concent 36.1 G/DL (32.0-36.0) H 36.0 G/DL (32.0-36.0) Red Cell Distribution Width 11.5 % (11.6-14.8) L 11.6 % (11.6-14.8) Platelet Count 279 K/UL (150-450) 232 K/UL (150-450) Mean Platelet Volume 6.6 FL (6.5-10.1) 6.9 FL (6.5-10.1) Neutrophils (%) (Auto) % (45.0-75.0) % (45.0-75.0) Lymphocytes (%) (Auto) % (20.0-45.0) % (20.0-45.0) Monocytes (%) (Auto) % (1.0-10.0) % (1.0-10.0) Eosinophils (%) (Auto) % (0.0-3.0) % (0.0-3.0) Basophils (%) (Auto) % (0.0-2.0) % (0.0-2.0) Differential Total Cells Counted 100 100 Neutrophils % (Manual) 82 % (45-75) H 94 % (45-75) H Lymphocytes % (Manual) 8 % (20-45) L 3 % (20-45) L Monocytes % (Manual) 5 % (1-10) 1 % (1-10) Eosinophils % (Manual) 0 % (0-3) 0 % (0-3) Basophils % (Manual) 0 % (0-2) 0 % (0-2) Band Neutrophils 5 % (0-8) 2 % (0-8) Platelet Estimate Adequate Adequate Platelet Morphology Normal Normal Red Blood Cell Morphology Normal Normal Coagulation Test 08/14/18 05:20 Prothrombin Time 9.9 SEC (9.30-11.50) Prothromb Time International Ratio 0.9 (0.9-1.1) Activated Partial Thromboplast Time 29 SEC (23-33) Chemistry Test 08/13/18 18:20 08/14/18 05:20 Sodium Level 136 MMOL/L (136-145) 137 MMOL/L (136-145) Potassium Level 3.4 MMOL/L (3.5-5.1) L 3.5 MMOL/L (3.5-5.1) Chloride Level 100 MMOL/L (98-107) 104 MMOL/L (98-107) Carbon Dioxide Level 21 MMOL/L (21-32) 25 MMOL/L (21-32) Anion Gap 15 mmol/L (5-15) 8 mmol/L (5-15) Blood Urea Nitrogen 13 mg/dL (7-18) 13 mg/dL (7-18) Creatinine 1.4 MG/DL (0.55-1.30) H 1.3 MG/DL (0.55-1.30) Estimat Glomerular Filtration Rate 55.6 mL/min (>60) > 60 mL/min (>60) Glucose Level 111 MG/DL (74-106) H 104 MG/DL (74-106) Calcium Level 9.2 MG/DL (8.5-10.1) 8.9 MG/DL (8.5-10.1) Total Bilirubin 1.6 MG/DL (0.2-1.0) H Direct Bilirubin 0.3 MG/DL (0.0-0.3) Aspartate Amino Transf (AST/SGOT) 32 U/L (15-37) Alanine Aminotransferase (ALT/SGPT) 56 U/L (12-78) Alkaline Phosphatase 62 U/L (46-116) Total Protein 8.0 G/DL (6.4-8.2) Albumin 4.5 G/DL (3.4-5.0) Globulin 3.5 g/dL Albumin/Globulin Ratio 1.3 (1.0-2.7) Lipase 112 U/L (73-393) Studies Pre-op Studies: EKG - sr Risk Assessment & Plan Assessment: ASA II Plan: GA Status Change Before Surgery: No Pre-Antibiotics Drug: Ancef 2g Given Within 1 Hr of Incision: Yes Liz Okeefe MD Aug 14, 2018 11:41
[2018-08-14] MEDS ORDERED: LR 1000ml 1,000 ML IVLG SCH (11:43)
[2018-08-14] MEDS ORDERED: Midazolam 2mg/2ml Inj IVP PRN (11:45)
[2018-08-14] MEDS ORDERED: fentaNYL 100 mcg/2 mL IV PRN (11:45)
[2018-08-14] MEDS ORDERED: Ketorolac 30mg Inj IV PRN (11:45)
[2018-08-14] MEDS ORDERED: Metoclopramide 10mg/2ml Inj IVP PRN (11:45)
[2018-08-14] MEDS ORDERED: DiphenhydrAMINE 50mg/ml Inj IVP PRN (11:45)
[2018-08-14] MEDS ORDERED: LORazepam Inj 2mg/ml 1ml IV PRN (11:45)
[2018-08-14] MEDS ORDERED: Hydromorphone 0.5mg/0.5ml inj IVP PRN (11:45)
[2018-08-14] MEDS ORDERED: Propofol 200mg/20ml IV ONE (11:52)
[2018-08-14] MEDS ORDERED: Lidocaine 1% MPF 10mg/ml 5ml ONE (11:52)
[2018-08-14] MEDS ORDERED: fentaNYL 100 mcg/2 mL IV ONE (11:52)
[2018-08-14] MEDS ORDERED: Midazolam 2mg/2ml Inj ONE (11:52)
[2018-08-14] MEDS ORDERED: Metoclopramide 10mg/2ml Inj ONE (11:55)
[2018-08-14] MEDS ORDERED: Dexamethasone 4mg/ml vial ONE (11:55)
[2018-08-14] MEDS ORDERED: Ketorolac 30mg Inj ONE (11:55)
[2018-08-14] MEDS ORDERED: NS Irrig 1000ml IRRIG ONE (11:58)
--- NOTE | 2018-08-14 13:07 | Immediate Post-Op Evaluation ---
Immediate Post-Op Evalulation Immediate Post-Op Evalulation Procedure: Lap appy Date of Evaluation: Aug 14, 2018 Time of Evaluation: 13:09 IV Fluids: 1L Blood Products: 0 Estimated Blood Loss: min Urinary Output: 0 Blood Pressure Systolic: 110 Blood Pressure Diastolic: 56 Pulse Rate: 89 Respiratory Rate: 16 O2 Sat by Pulse Oximetry: 100 Temperature (Fahrenheit): 99 Pain Score (1-10): 0 Nausea: No Vomiting: No Complications 0 Patient Status: awake, reacts, patent, none Hydration Status: adequate Drug: Ancef 2g Given Within 1 Hr of Incision: Yes Liz Okeefe MD Aug 14, 2018 13:07
[2018-08-14] MEDS ORDERED: HYDROcodone/Acetamin 10/325 tab ORAL PRN (14:00)
[2018-08-14] MEDS ORDERED: HYDROcodone/Acetamin 5/325 tab ORAL PRN (14:00)
--- NOTE | 2018-08-14 14:20 | NUR ---
NURSE NOTES: Roberta HINES brought patient by bed in stable condition. No complain of pain or distress at this time. On O2 @ 2L via NC. Surgical dressing stained and will continue to monitor. IV dressing intact and dry. Bed lowest position. Call light within reach. Will continue to monitor.
--- NOTE | 2018-08-14 15:25 | Brief Operative Note ---
Immediate Post Operative Note Operative Note Pre-op Diagnosis: appendicitis Procedure: lap appy Post-op Diagnosis: same as pre-op Surgeon: iraida Anesthesiologist: hudson Anesthesia: general, local Specimen: yes Complications: none Condition: stable Fluids: see records Estimated Blood Loss: minimal Drains: none Implant(s) used?: No Samuel Goncalves Aug 14, 2018 15:25
--- NOTE | 2018-08-14 15:26 | Cardiology Report ---
APPROVED REPORT EKG Measurement Heart [id number] Normal sinus rhythm Nonspecific T wave abnormality Abnormal ECG
--- NOTE | 2018-08-14 18:30 | NUR ---
NURSE NOTES: Patient voided 200cc. No complain of pain or discomfort. Will continue to monitor.
--- NOTE | 2018-08-14 19:00 | Consultation ---
DATE OF CONSULTATION: 08/14/2018 INFECTIOUS DISEASE CONSULTATION CONSULTING PHYSICIAN: Aristides Mendiola M.D. PRIMARY ATTENDING PHYSICIAN: Carlos Eisenberg M.D. REASON FOR CONSULTATION: Acute appendicitis. HISTORY OF PRESENT ILLNESS: The patient is a 43-year-old male admitted yesterday from home complaining of abdominal pain more in the right side. The patient also had subjective fever. No nausea. No vomiting. No diarrhea. No constipation. The patient's problems started two days before the day of admission. PAST MEDICAL HISTORY: Significant for hypertension and dyslipidemia. ALLERGIES: No known drug allergies. MEDICATIONS: Getting famotidine, Zosyn, potassium chloride, bisacodyl, milk of magnesium, morphine, Mylanta, diphenhydramine. SOCIAL HISTORY: Originally from [facility] [facility]. 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 . Drinks three times in a week. No drug abuse. Nonsmoker. REVIEW OF SYSTEMS: as history of present illnes PHYSICAL EXAMINATION: VITAL SIGNS: Temperature 99.7, pulse 85, blood pressure 140/94. GENERAL APPEARANCE: No acute distress, well developed. HEAD AND NECK: [place] conjunctivae. No oral lesion. HEART: S1 and S2. Regular. Normal rate. LUNGS: Clear. ABDOMEN: Tender. Pain in the right side. EXTREMITIES: No edema. NEUROLOGIC: Awake, alert, oriented x3. LABORATORY AND DIAGNOSTIC DATA: Sodium 137, potassium 3.5, chloride 104, bicarbonate 25, BUN 13, creatinine 1.3, glucose 104. WBC 14.4, coming down from 22.1 at the time of admission, hemoglobin 13.7, hematocrit 38, platelet 232. IMPRESSION: 1. Acute appendicitis 2. Leukocytosis. 3. Hypertension. 4. Dyslipidemia. RECOMMENDATION: We will continue with Zosyn. The patient will have appendectomy today. At the end of my exam, I thank Dr. Eisenberg, for involving me in the care of this patient. Aristides Mendiola M.D. DR: Ronal JOB#: [id number] CC: DULCE
--- NOTE | 2018-08-14 19:15 | Operative Note - Dictated ---
DATE OF OPERATION: 08/14/2018 PREOPERATIVE DIAGNOSIS: Acute appendicitis. POSTOPERATIVE DIAGNOSIS: Acute appendicitis. OPERATION PERFORMED: Laparoscopic appendectomy. ATTENDING SURGEON: Samuel Goncalves M.D. ROLLER CHECKER: None. ANESTHESIOLOGIST: Dr. Maurisio Nunez. ANESTHESIA: General GETA. ESTIMATED BLOOD LOSS: Minimal. IV FLUIDS: Please see anesthesia records. COMPLICATIONS: None. DRAINS: None. SPECIMEN: Appendix sent to pathology for review. WOUND CLASSIFICATION: Class 3. ANTIBIOTICS: The patient on scheduled IV Zosyn. COUNTS: Sponge and needle count correct x2. COMPLICATIONS: None. INDICATIONS FOR PROCEDURE: This is a 44-year-old male who presented to the emergency department at [facility] complaining of worsening abdominal pain mainly in the right lower quadrant for approximately 2 to 3 days. The patient was identified to have a leukocytosis and CT scan consistent with acute appendicitis. Surgery was indicated and recommended. Risks, benefits, and alternatives were discussed with the patient in detail, who expressed understanding and consented to surgery. OPERATIVE NOTE: The patient was taken to the operating room, placed on the operating room table in supine position with left arm tucked. All bony prominences well padded. SCDs were placed. Preoperative time-out taken identifying the patient, procedure, operative staff, and surgical staff. General anesthesia was induced and the patient was intubated. The abdomen was clipped, prepped, draped in a standard surgical fashion. Local anesthetic was infiltrated through all incisions and port sites for the patient's comfort. An infraumbilical incision made and carried down to the fascia, which was elevated and incised. Incision was made into the fascia and entry into the abdomen was obtained using open Mirian technique without complication. A 12 mm Mirian trocar was inserted and the abdomen was insufflated. The patient tolerated the insufflation well. Laparoscope was inserted and the abdomen was inspected. No injury from initial trocar placement noted. The patient was placed in reverse Trendelenburg with left side down. The upper quadrants looked fine. The pelvis looked okay. The patient had an inguinal hernia. In the right lower quadrant, there was a inflamed dilated appendix. No perforation was identified. There was some murky fluid in the pelvis. Secondary trocars placed under direct visualization beginning with the left lower quadrant 12 mm trocar site followed by a suprapubic trocar and a 5 mm trocar site. No injury from secondary trocar placement noted. Following this, laparoscopic graspers were inserted and the appendix was mobilized. The appendix was grasped and retracted towards the pelvis. The cecum was identified and the tenia was followed to the confluence where the base of the appendix was noted. A window was made at the base of the appendix and a laparoscopic linear staple was used to divide the base of the appendix without complication. In a similar fashion, the mesoappendix was divided with a laparoscopic linear stapler. There was some bleeding noted from the mesoappendix staple line and therefore laparoscopic clips were used and hemostasis was obtained. Following this, the right lower quadrant and pelvis were irrigated and cleansed until clear. The appendix placed in endoscopic retrieval bag and removed from the abdomen using the left lower quadrant port site. Both staple lines of the base of the appendix and mesoappendix were hemostatic and stable intact. At this time, we began the conclusion of our procedure. Secondary trocars were removed under direct visualization followed by the umbilical trocar site. The abdomen was desufflated. The umbilical trocar site and left lower quadrant port site fascia were reapproximated using #0 Vicryl [id number] sutures. The remaining skin incisions were reapproximated using 4-0 Monocryl subcuticular interrupted sutures. Steri-Strips and dressings were applied. The patient tolerated the procedure well, was extubated and taken to the postanesthetic care unit in a stable condition. Samuel Goncalves M.D. DR: Eliana JOB#: [id number] CC:
--- NOTE | 2018-08-14 19:30 | NUR ---
HAND-OFF: Report given to Hannah HINES and Rahel HINES. Patient in stable condition.
--- NOTE | 2018-08-14 19:30 | NUR ---
NURSE NOTES: Patient in bed, awake and oriented x4, complained of pain, will medicate as ordered. SCD's on. Instructed the patient the use of call light. Call light within reach. Bed in lowest position and lock engaged. Will continue to monitor.
--- NOTE | 2018-08-14 23:00 | History and Physical Report ---
DATE OF ADMISSION: 08/13/2018 HISTORY OF PRESENT ILLNESS: The patient was admitted for acute appendicitis, complaining of abdominal pain for one day. Dr. Goncalves is aware of patient and is taking the patient to the operating room. The patient denies nausea, vomiting, diarrhea, fever, or chills. Denies shortness of breath. Denies cough. Denies chills. PAST MEDICAL HISTORY: None. PAST SURGICAL HISTORY: None. SOCIAL HISTORY: Denies history of smoking. Denies history of drug abuse. Binge drink at times. MEDICATIONS: None. FAMILY HISTORY: Noncontributory. ALLERGIES: No known allergies. REVIEW OF SYSTEMS: HEENT: Denies headaches. RESPIRATORY: Denies shortness of breath. Denies cough. CARDIOVASCULAR: Denies chest pain. GASTROINTESTINAL: Denies nausea, vomiting, or diarrhea. Does have abdominal pain for one day. EXTREMITIES: Denies pain. CENTRAL NERVOUS SYSTEM: No change in vision or speech pattern. PHYSICAL EXAMINATION: VITAL SIGNS: Temperature 97.2, pulse 78, blood pressure 132/70. HEENT: PERRLA. NECK: Supple. No lymphadenopathy. CHEST: Clear to auscultation. CARDIOVASCULAR: Regular rate and rhythm. No murmurs or extra sounds. GASTROINTESTINAL: Soft. Right lower quadrant tenderness. No rebound. EXTREMITIES: Reflexes equal on both sides. Moves all four extremities. LABORATORY AND DIAGNOSTIC DATA: WBC of 22, hemoglobin 14.4, and platelets of 279. Sodium 133, potassium 3.4, BUN is , creatinine 1.4, and glucose of 100. ASSESSMENT: 1. Appendicitis. 2. Hypokalemia. I have consulted Dr. Goncalves, Dr. Stone, Dr. Reynoso, Dr. Aristides Mendiola for the management of appendicitis and low potassium. Carlos Eisenberg M.D. DR: Carli JOB#: [id number] CC:
[2018-08-15] VITALS: BP 120/69
[2018-08-15 04:00] VITALS: BP 120/73
[2018-08-15] MEDS: Piperacillin/Tazobactam 3.375 GM in NS 110 ML IVPB SCH (05:13)
[2018-08-15] MEDS: Morphine Sulfate 4mg/ml Inj (IV USE ONLY) IVP PRN (05:23)
[2018-08-15 06:16] LABS: HEMATOCRIT 35.7 % (42.0-52.0); HEMOGLOBIN 12.6 G/DL (14.2-18.0); MEAN CORPUSCULAR VOLUME 87 FL (80-99); PLATELET COUNT 213 K/UL (150-450); RED BLOOD COUNT 4.08 M/UL (4.70-6.10); RED CELL DISTRIBUTION WIDTH 11.7 % (11.6-14.8)
[2018-08-15 06:23] LABS: ANION GAP 11 mmol/L (5-15); BLOOD UREA NITROGEN 16 mg/dL (7-18); CALCIUM 8.3 MG/DL (8.5-10.1); CARBON DIOXIDE 22 MMOL/L (21-32); CHLORIDE 106 MMOL/L (98-107); CREATININE 1.3 MG/DL (0.55-1.30); POTASSIUM 3.8 MMOL/L (3.5-5.1); SODIUM 139 MMOL/L (136-145)
[2018-08-15 06:30] LABS: INR 0.9 (0.9-1.1)
--- NOTE | 2018-08-15 07:19 | NUR ---
HAND-OFF: Report given to DONNY Brito.
[2018-08-15 08:00] VITALS: BP 124/73
--- NOTE | 2018-08-15 08:43 | NUR ---
NURSE NOTES: received report from DONNY Young. charlest in bed, alert oriented x4, verbally responsive. no respiratory distress noted. no c/o pain at this time. surgical site on abd with sterile dressing. no active beeding noted. IV intact. bed in the lowest position. call light within reach. will continue to monitor.
--- NOTE | 2018-08-15 10:28 | GI Progress Note ---
Assessment/Plan Problems: (1) Acute appendicitis ICD Codes: K35.80 - Unspecified acute appendicitis SNOMED: 03656953 (2) Leukocytosis, unspecified ICD Codes: D72.829 - Elevated white blood cell count, unspecified SNOMED: 258142094, [id number] Status: unchanged Status Narrative Discussed with Dr. Reynoso Assessment/Plan Abdominal pelvis CT taken, acute appendicitis Patient scheduled for laparoscopic appendectomy Maintain n.p.o. plus IV fluids Follow-up for postoperative nausea vomiting Pain management PPI Zofran as needed follow labs The patient was seen and examined at bedside and all new and available data was reviewed in the patients chart. I agree with the above findings, impression and plan. (Patient seen earlier today. Signature stamp does not reflect patient encounter time.). - Christopher Reynoso MD Subjective Gastrointestinal/Abdominal: Reports: no symptoms Subjective Denies any abdominal pain Denies any nausea vomiting Objective Last 24 Hour Vital Signs Date Time Temp Pulse Resp B/P (MAP) Pulse Ox O2 Delivery O2 Flow Rate FiO2 08/15/18 04:00 98.0 63 20 120/73 (89) 99 08/15/18 00:00 98.1 60 18 120/69 (86) 99 08/14/18 21:00 Room Air 08/14/18 20:00 99.3 70 20 122/69 (86) 98 08/14/18 16:30 98.6 62 18 118/68 (85) 98 08/14/18 15:30 98.0 62 18 119/69 (86) 98 08/14/18 15:00 98.9 71 20 120/69 (86) 99 08/14/18 14:30 99.8 74 20 125/69 (87) 99 08/14/18 14:00 97.9 81 16 125/61 99 Nasal Cannula 3 08/14/18 13:45 81 16 112/67 99 Nasal Cannula 3 08/14/18 13:30 86 17 115/59 99 Simple Mask 6 08/14/18 13:20 85 18 110/54 99 Simple Mask 6 08/14/18 13:14 87 16 115/59 100 Simple Mask 6 08/14/18 13:09 88 22 110/57 100 Simple Mask 6 08/14/18 13:07 89 16 100 08/14/18 13:04 99.0 89 16 110/56 100 Simple Mask 6 Intake and Output 08/14/18 08/15/18 19:00 07:00 Intake Total 1100 ml 220 ml Output Total 20 ml 300 ml Balance 1080 ml -80 ml Intake Oral 0 ml IV Total 1100 ml 220 ml Output Urine Total 300 ml Estimated Blood Loss 20 ml # Voids 3 Laboratory Tests Test 08/15/18 05:54 White Blood Count 9.0 K/UL (4.8-10.8) Red Blood Count 4.08 M/UL (4.70-6.10) L Hemoglobin 12.6 G/DL (14.2-18.0) L Hematocrit 35.7 % (42.0-52.0) L Mean Corpuscular Volume 87 FL (80-99) Mean Corpuscular Hemoglobin 30.8 PG (27.0-31.0) Mean Corpuscular Hemoglobin Concent 35.3 G/DL (32.0-36.0) Red Cell Distribution Width 11.7 % (11.6-14.8) Platelet Count 213 K/UL (150-450) Mean Platelet Volume 7.0 FL (6.5-10.1) Neutrophils (%) (Auto) % (45.0-75.0) Lymphocytes (%) (Auto) % (20.0-45.0) Monocytes (%) (Auto) % (1.0-10.0) Eosinophils (%) (Auto) % (0.0-3.0) Basophils (%) (Auto) % (0.0-2.0) Prothrombin Time 9.7 SEC (9.30-11.50) Prothromb Time International Ratio 0.9 (0.9-1.1) Activated Partial Thromboplast Time 27 SEC (23-33) Sodium Level 139 MMOL/L (136-145) Potassium Level 3.8 MMOL/L (3.5-5.1) Chloride Level 106 MMOL/L (98-107) Carbon Dioxide Level 22 MMOL/L (21-32) Anion Gap 11 mmol/L (5-15) Blood Urea Nitrogen 16 mg/dL (7-18) Creatinine 1.3 MG/DL (0.55-1.30) Estimat Glomerular Filtration Rate > 60 mL/min (>60) Glucose Level 130 MG/DL (74-106) H Calcium Level 8.3 MG/DL (8.5-10.1) L Height (Feet): 5 Height (Inches): 5.00 Weight (Pounds): 184 General Appearance: WD/WN, no apparent distress, alert Cardiovascular: normal rate Respiratory/Chest: normal breath sounds, no respiratory distress Abdominal Exam: normal bowel sounds, non tender, soft Extremities: normal range of motion, non-tender Julio Greenberg NP Aug 15, 2018 10:28
--- NOTE | 2018-08-15 10:38 | NUR ---
BIOLOGISTINPATIENT AUDITOR SI:ACUTE APPENDICITIS S/P LAPAROSCOPIC APPENDECTOMY VS: BP 118/68, P 60, T 99.3, RR 20, SpO2 99 RBC 4.08, H&H 12.6/35.7, Glucose 130, Ca 8.3 IS:MORPHINE SULFATE 4mg IVP PEPCID 40mg ZOSYN 110ml IVPB MED/SURG STATUS
--- NOTE | 2018-08-15 10:56 | 48 Hour Post Anesthesia Eval ---
Post Anesthesia Evaluation Procedure: Lap appy Date of Evaluation: Aug 15, 2018 Time of Evaluation: 10:54 Blood Pressure Systolic: 128 0: 72 Pulse Rate: 78 Respiratory Rate: 22 Temperature (Fahrenheit): 97.6 O2 Sat by Pulse Oximetry: 98 Airway: patent Nausea: No Vomiting: No Pain Intensity: 2 Hydration Status: adequate Cardiopulmonary Status: stable Mental Status/LOC: patient returned to baseline Follow-up Care/Observations: n/a Post-Anesthesia Complications: none Follow-up care needed: N/A Casper Presley MD Aug 15, 2018 10:55
[2018-08-15 12:00] VITALS: BP 141/89
--- NOTE | 2018-08-15 12:22 | Consultation ---
History of Present Illness General Date patient seen: Aug 15, 2018 Chief Complaint: Abdominal Pain Referring physician: NOÉ EISENBERG Reason for Consultation: Abdominal Pain Present Illness Allergies: Coded Allergies: No Known Allergies (Unverified , 07/06/18) Medication History Scheduled PRN Acetaminophen With Codeine (T#3) (Tylenol #3 Tab*), 1 TAB ORAL Q8H PRN for For Pain Ibuprofen* (Motrin*), 600 MG ORAL Q8H PRN for For Pain Patient History Healthcare decision maker Resuscitation status Full Code Advanced Directive on File Physical Exam Last 24 Hour Vital Signs Date Time Temp Pulse Resp B/P (MAP) Pulse Ox O2 Delivery O2 Flow Rate FiO2 08/15/18 10:56 78 22 98 08/15/18 04:00 98.0 63 20 120/73 (89) 99 08/15/18 00:00 98.1 60 18 120/69 (86) 99 08/14/18 21:00 Room Air 08/14/18 20:00 99.3 70 20 122/69 (86) 98 08/14/18 16:30 98.6 62 18 118/68 (85) 98 08/14/18 15:30 98.0 62 18 119/69 (86) 98 08/14/18 15:00 98.9 71 20 120/69 (86) 99 08/14/18 14:30 99.8 74 20 125/69 (87) 99 08/14/18 14:00 97.9 81 16 125/61 99 Nasal Cannula 3 08/14/18 13:45 81 16 112/67 99 Nasal Cannula 3 08/14/18 13:30 86 17 115/59 99 Simple Mask 6 08/14/18 13:20 85 18 110/54 99 Simple Mask 6 08/14/18 13:14 87 16 115/59 100 Simple Mask 6 08/14/18 13:09 88 22 110/57 100 Simple Mask 6 08/14/18 13:07 89 16 100 08/14/18 13:04 99.0 89 16 110/56 100 Simple Mask 6 Intake and Output 08/14/18 08/15/18 19:00 07:00 Intake Total 1100 ml 220 ml Output Total 20 ml 300 ml Balance 1080 ml -80 ml Intake Oral 0 ml IV Total 1100 ml 220 ml Output Urine Total 300 ml Estimated Blood Loss 20 ml # Voids 3 Laboratory Tests Test 08/15/18 05:54 White Blood Count 9.0 K/UL (4.8-10.8) Red Blood Count 4.08 M/UL (4.70-6.10) L Hemoglobin 12.6 G/DL (14.2-18.0) L Hematocrit 35.7 % (42.0-52.0) L Mean Corpuscular Volume 87 FL (80-99) Mean Corpuscular Hemoglobin 30.8 PG (27.0-31.0) Mean Corpuscular Hemoglobin Concent 35.3 G/DL (32.0-36.0) Red Cell Distribution Width 11.7 % (11.6-14.8) Platelet Count 213 K/UL (150-450) Mean Platelet Volume 7.0 FL (6.5-10.1) Neutrophils (%) (Auto) % (45.0-75.0) Lymphocytes (%) (Auto) % (20.0-45.0) Monocytes (%) (Auto) % (1.0-10.0) Eosinophils (%) (Auto) % (0.0-3.0) Basophils (%) (Auto) % (0.0-2.0) Prothrombin Time 9.7 SEC (9.30-11.50) Prothromb Time International Ratio 0.9 (0.9-1.1) Activated Partial Thromboplast Time 27 SEC (23-33) Sodium Level 139 MMOL/L (136-145) Potassium Level 3.8 MMOL/L (3.5-5.1) Chloride Level 106 MMOL/L (98-107) Carbon Dioxide Level 22 MMOL/L (21-32) Anion Gap 11 mmol/L (5-15) Blood Urea Nitrogen 16 mg/dL (7-18) Creatinine 1.3 MG/DL (0.55-1.30) Estimat Glomerular Filtration Rate > 60 mL/min (>60) Glucose Level 130 MG/DL (74-106) H Calcium Level 8.3 MG/DL (8.5-10.1) L Height (Feet): 5 Height (Inches): 5.00 Weight (Pounds): 184 Medications Current Medications Medications (Trade) Dose Ordered Sig/Joann Route PRN Reason Start Time Stop Time Status Last Admin Dose Admin Acetaminophen (Tylenol) 650 mg Q4H PRN ORAL fever 08/13/18 20:39 09/12/18 20:38 Acetaminophen (Tylenol) 650 mg Q6H PRN ORAL Mild Pain (Pain Scale 1-3) 08/14/18 14:00 09/13/18 13:59 Acetaminophen/ Hydrocodone Bitart ([place] 10/325) 1 tab Q4H PRN ORAL Severe Pain (Pain Scale 7-10) 08/14/18 14:00 08/21/18 13:59 Acetaminophen/ Hydrocodone Bitart ([place] 5/325) 1 tab Q4H PRN ORAL Moderate Pain (Pain Scale 4-6) 08/14/18 14:00 08/21/18 13:59 Al Hydroxide/Mg Hydroxide (Mylanta II) 30 ml Q6H PRN ORAL dyspepsia 08/13/18 20:40 09/12/18 20:39 Bisacodyl (Dulcolax) 10 mg HSPRN PRN RECTAL Constipation 08/13/18 21:00 09/12/18 20:59 Dextrose (Dextrose 50%) 25 ml Q30M PRN IV Hypoglycemia 08/13/18 20:40 09/12/18 20:39 Dextrose (Dextrose 50%) 50 ml Q30M PRN IV Hypoglycemia 08/13/18 20:40 09/12/18 20:39 Diphenhydramine HCl (Benadryl) 25 mg Q6H PRN ORAL Itching/Pruritis 08/13/18 20:39 09/12/18 20:38 Famotidine (Pepcid) 40 mg DAILY ORAL 08/14/18 09:00 09/13/18 08:59 08/15/18 09:35 Iopamidol (Isovue-300 100ml) 100 ml NOW PRN INJ Radiology Procedure 08/13/18 18:45 Magnesium Hydroxide (Mom) 30 ml HSPRN PRN ORAL Constipation 08/13/18 21:00 09/12/18 20:59 Morphine Sulfate (Morphine Sulfate) 1 mg Q3H PRN IVP Mild Pain(1-3) 08/13/18 20:42 08/20/18 20:41 08/15/18 09:35 Morphine Sulfate (Morphine Sulfate) 2 mg Q3H PRN IVP Moderate Pain (Pain Scale 4-6) 08/13/18 20:42 08/20/18 20:41 08/14/18 19:45 Morphine Sulfate (Morphine Sulfate) 4 mg Q3H PRN IVP Severe Pain (Pain Scale 7-10) 08/13/18 20:42 08/20/18 20:41 08/15/18 05:23 Ondansetron HCl (Zofran) 4 mg Q6H PRN IVP Nausea & Vomiting 08/13/18 20:39 09/12/18 20:38 Piperacillin Sod/ Tazobactam Sod 3.375 gm/Sodium Chloride 110 ml @ 220 mls/hr EVERY 8 HOURS IVPB 08/14/18 05:00 08/21/18 04:59 08/15/18 05:13 Temazepam (Restoril) 15 mg HSPRN PRN ORAL Insomnia 08/13/18 21:00 08/20/18 20:59 Assessment/Plan Assessment/Plan: HEMATOLOGY/ONCOLOGY CONSULTATION DATE OF CONSULT: 08/15/2018 REFERRING PHYSICIAN: Noé Eisenberg REASON FOR CONSULT: Anemia, leukocytosis HPI: Patient presented with complaint of mid abdominal pain fairly diffuse started last night. Denies any vomiting or diarrhea patient reports that he was unable to sleep last night as the pain persisted he presented to the ER. Denies any constipation denies, any recent trauma denies, any chest pain or shortness of breath. Pain is cramping and sharp 5 out of 10. Review of cbc showed and elevated wbc and low hgb. Hematology services were consulted for the evaluation of anemia and leukocytosis. Past Medical History: Calf injury, appendicitis, leukocytosis Surgical History: None Family History: Noncontributory Social History: Denies history of smoking. Denies history of drug abuse. Binge drinks at times. Review of Symptoms General ROS: no weight loss or fever Psychological ROS: no depression or mood changes, no memory loss Ophthalmic ROS: no visual changes or eye irritation ENT ROS: no nasal congestion, hearing loss, dizziness Allergy and Immunology ROS: no allergic symptoms or urticaria Hematological and Lymphatic ROS: no swollen glands, unusual bleeding or bruising Endocrine ROS: no polyuria, polydipsia, weight changes, temperature intolerance Respiratory ROS: no cough, shortness of breath, or wheezing Cardiovascular ROS: no chest pain or dyspnea on exertion Gastrointestinal ROS: abdominal pain, no bright red blood in stool. Musculoskeletal ROS: no myalgias or arthralgias Neurological ROS: no TIA or stroke symptoms Dermatological ROS: no new or changing skin lesions, rashes or pruritis Physical Exam General appearance: alert, cooperative, no distress, appears stated age Head: Normocephalic, without obvious abnormality, atraumatic Eyes: conjunctivae/corneas clear. PERRL, EOM's intact. Fundi benign Throat: Lips, mucosa, and tongue normal. Teeth and gums normal Neck: supple, symmetrical, trachea midline, no adenopathy, thyroid: not enlarged, symmetric, no tenderness/mass/nodules, no carotid bruit and no JVD Lungs: clear to auscultation bilaterally Heart: regular rate and rhythm, S1, S2 normal, no murmur, click, rub or gallop Abdomen: soft, RLQ tender with rebound and guarding. Bowel sounds normal. No masses, no organomegaly Extremities: extremities normal, atraumatic, no cyanosis or edema Pulses: 2+ and symmetric Skin: Skin color, texture, turgor normal. No rashes or lesions Last 24 Hour Vital Signs Date Time Temp Pulse Resp B/P (MAP) Pulse Ox O2 Delivery O2 Flow Rate FiO2 08/15/18 10:56 78 22 98 08/15/18 04:00 98.0 63 20 120/73 (89) 99 08/15/18 00:00 98.1 60 18 120/69 (86) 99 08/14/18 21:00 Room Air 08/14/18 20:00 99.3 70 20 122/69 (86) 98 08/14/18 16:30 98.6 62 18 118/68 (85) 98 08/14/18 15:30 98.0 62 18 119/69 (86) 98 08/14/18 15:00 98.9 71 20 120/69 (86) 99 08/14/18 14:30 99.8 74 20 125/69 (87) 99 08/14/18 14:00 97.9 81 16 125/61 99 Nasal Cannula 3 08/14/18 13:45 81 16 112/67 99 Nasal Cannula 3 08/14/18 13:30 86 17 115/59 99 Simple Mask 6 08/14/18 13:20 85 18 110/54 99 Simple Mask 6 08/14/18 13:14 87 16 115/59 100 Simple Mask 6 08/14/18 13:09 88 22 110/57 100 Simple Mask 6 08/14/18 13:07 89 16 100 08/14/18 13:04 99.0 89 16 110/56 100 Simple Mask 6 Laboratory Tests Test 08/15/18 05:54 White Blood Count 9.0 K/UL (4.8-10.8) Red Blood Count 4.08 M/UL (4.70-6.10) L Hemoglobin 12.6 G/DL (14.2-18.0) L Hematocrit 35.7 % (42.0-52.0) L Mean Corpuscular Volume 87 FL (80-99) Mean Corpuscular Hemoglobin 30.8 PG (27.0-31.0) Mean Corpuscular Hemoglobin Concent 35.3 G/DL (32.0-36.0) Red Cell Distribution Width 11.7 % (11.6-14.8) Platelet Count 213 K/UL (150-450) Mean Platelet Volume 7.0 FL (6.5-10.1) Neutrophils (%) (Auto) % (45.0-75.0) Lymphocytes (%) (Auto) % (20.0-45.0) Monocytes (%) (Auto) % (1.0-10.0) Eosinophils (%) (Auto) % (0.0-3.0) Basophils (%) (Auto) % (0.0-2.0) Prothrombin Time 9.7 SEC (9.30-11.50) Prothromb Time International Ratio 0.9 (0.9-1.1) Activated Partial Thromboplast Time 27 SEC (23-33) Sodium Level 139 MMOL/L (136-145) Potassium Level 3.8 MMOL/L (3.5-5.1) Chloride Level 106 MMOL/L (98-107) Carbon Dioxide Level 22 MMOL/L (21-32) Anion Gap 11 mmol/L (5-15) Blood Urea Nitrogen 16 mg/dL (7-18) Creatinine 1.3 MG/DL (0.55-1.30) Estimat Glomerular Filtration Rate > 60 mL/min (>60) Glucose Level 130 MG/DL (74-106) H Calcium Level 8.3 MG/DL (8.5-10.1) L IMAGIN/11: CT abd/pelvis --> Positive for uncomplicated acute appendicitis. Fatty liver. Subcentimeter low-attenuation left renal lesions, too small to characterize, most likely benign simple cysts. No further follow-up necessary LABS: wbc 9 hgb 12.6 plt 213 ASSESSMENT AND RECOMMENDATIONS # Anemia of chronic disease (or of iron deficiency) due to underlying chronic medical issues, multifactorial --> Anemia workup has been ordered, rule out gi bleed --> No evidence of hemolysis is noted, peripheral smear has been reviewed. --> Hgb goal >7. Transfuse prn. --> Epogen or iron at this time is not particularly indicated --> Medications have been reviewed --> low threshold for gi evaluation in case has occult + --> bone marrow biopsy is not indicated given the other more likely causes # Leukocytosis/elevated white blood cell count, unspecified likely related to underlying acute appendicitis is now s/p lap choly --> Currently resolved --> have reviewed peripheral smear and bandemia/neutrophilia noted --> continue antibiotics if they have been started by ID team # Acute appendicitis. GI is following, appreciate recs. is s/p lap choly --> Abdominal pelvis CT confirms appendicitis --> Pain management --> PPI --> Zofran as needed ==> f/u surg recs The time note is entered does not reflect the time the patient was examined. Greatly appreciate consultation. Álvaro Fay MD Aug 15, 2018 12:22
--- NOTE | 2018-08-15 12:26 | Infectious Diseases Prog Note ---
Assessment/Plan Assessment/Plan IMPRESSION: 1. Acute appendicitis, s/p laparoscopic appendectomy 2. Leukocytosis. 3. Hypertension. 4. Dyslipidemia. RECOMMENDATION: We will continue with Noemísyn. Subjective ROS Limited/Unobtainable: No Constitutional: Reports: no symptoms Respiratory: Reports: no symptoms Gastrointestinal/Abdominal: Reports: no symptoms, other - pain after eating Genitourinary: Reports: no symptoms Allergies: Coded Allergies: No Known Allergies (Unverified , 07/06/18) Objective Vital Signs Last 24 Hour Vital Signs Date Time Temp Pulse Resp B/P (MAP) Pulse Ox O2 Delivery O2 Flow Rate FiO2 08/15/18 12:00 98.1 60 20 141/89 (106) 98 08/15/18 10:56 78 22 98 08/15/18 09:00 Room Air 08/15/18 08:00 97.9 81 20 124/73 (90) 98 08/15/18 04:00 98.0 63 20 120/73 (89) 99 08/15/18 00:00 98.1 60 18 120/69 (86) 99 08/14/18 21:00 Room Air 08/14/18 20:00 99.3 70 20 122/69 (86) 98 08/14/18 16:30 98.6 62 18 118/68 (85) 98 08/14/18 15:30 98.0 62 18 119/69 (86) 98 08/14/18 15:00 98.9 71 20 120/69 (86) 99 08/14/18 14:30 99.8 74 20 125/69 (87) 99 08/14/18 14:00 97.9 81 16 125/61 99 Nasal Cannula 3 08/14/18 13:45 81 16 112/67 99 Nasal Cannula 3 08/14/18 13:30 86 17 115/59 99 Simple Mask 6 08/14/18 13:20 85 18 110/54 99 Simple Mask 6 08/14/18 13:14 87 16 115/59 100 Simple Mask 6 08/14/18 13:09 88 22 110/57 100 Simple Mask 6 08/14/18 13:07 89 16 100 08/14/18 13:04 99.0 89 16 110/56 100 Simple Mask 6 Height (Feet): 5 Height (Inches): 5.00 Weight (Pounds): 184 General Appearance: no acute distress HEENT: mucous membranes moist Respiratory/Chest: lungs clear Cardiovascular: normal rate Abdomen: other - mildly tender Extremities: no edema Neurologic/Psychiatric: alert, oriented x 3, responsive Laboratory Tests Test 08/15/18 05:54 White Blood Count 9.0 K/UL (4.8-10.8) Red Blood Count 4.08 M/UL (4.70-6.10) L Hemoglobin 12.6 G/DL (14.2-18.0) L Hematocrit 35.7 % (42.0-52.0) L Mean Corpuscular Volume 87 FL (80-99) Mean Corpuscular Hemoglobin 30.8 PG (27.0-31.0) Mean Corpuscular Hemoglobin Concent 35.3 G/DL (32.0-36.0) Red Cell Distribution Width 11.7 % (11.6-14.8) Platelet Count 213 K/UL (150-450) Mean Platelet Volume 7.0 FL (6.5-10.1) Neutrophils (%) (Auto) % (45.0-75.0) Lymphocytes (%) (Auto) % (20.0-45.0) Monocytes (%) (Auto) % (1.0-10.0) Eosinophils (%) (Auto) % (0.0-3.0) Basophils (%) (Auto) % (0.0-2.0) Prothrombin Time 9.7 SEC (9.30-11.50) Prothromb Time International Ratio 0.9 (0.9-1.1) Activated Partial Thromboplast Time 27 SEC (23-33) Sodium Level 139 MMOL/L (136-145) Potassium Level 3.8 MMOL/L (3.5-5.1) Chloride Level 106 MMOL/L (98-107) Carbon Dioxide Level 22 MMOL/L (21-32) Anion Gap 11 mmol/L (5-15) Blood Urea Nitrogen 16 mg/dL (7-18) Creatinine 1.3 MG/DL (0.55-1.30) Estimat Glomerular Filtration Rate > 60 mL/min (>60) Glucose Level 130 MG/DL (74-106) H Calcium Level 8.3 MG/DL (8.5-10.1) L Current Medications Medications (Trade) Dose Ordered Sig/Joann Route PRN Reason Start Time Stop Time Status Last Admin Dose Admin Acetaminophen (Tylenol) 650 mg Q4H PRN ORAL fever 08/13/18 20:39 09/12/18 20:38 Acetaminophen (Tylenol) 650 mg Q6H PRN ORAL Mild Pain (Pain Scale 1-3) 08/14/18 14:00 09/13/18 13:59 Acetaminophen/ Hydrocodone Bitart ([place] 10/325) 1 tab Q4H PRN ORAL Severe Pain (Pain Scale 7-10) 08/14/18 14:00 08/21/18 13:59 Acetaminophen/ Hydrocodone Bitart ([place] 5/325) 1 tab Q4H PRN ORAL Moderate Pain (Pain Scale 4-6) 08/14/18 14:00 08/21/18 13:59 Al Hydroxide/Mg Hydroxide (Mylanta II) 30 ml Q6H PRN ORAL dyspepsia 08/13/18 20:40 09/12/18 20:39 Bisacodyl (Dulcolax) 10 mg HSPRN PRN RECTAL Constipation 08/13/18 21:00 09/12/18 20:59 Dextrose (Dextrose 50%) 25 ml Q30M PRN IV Hypoglycemia 08/13/18 20:40 09/12/18 20:39 Dextrose (Dextrose 50%) 50 ml Q30M PRN IV Hypoglycemia 08/13/18 20:40 09/12/18 20:39 Diphenhydramine HCl (Benadryl) 25 mg Q6H PRN ORAL Itching/Pruritis 08/13/18 20:39 09/12/18 20:38 Famotidine (Pepcid) 40 mg DAILY ORAL 08/14/18 09:00 09/13/18 08:59 08/15/18 09:35 Iopamidol (Isovue-300 100ml) 100 ml NOW PRN INJ Radiology Procedure 08/13/18 18:45 Magnesium Hydroxide (Mom) 30 ml HSPRN PRN ORAL Constipation 08/13/18 21:00 09/12/18 20:59 Morphine Sulfate (Morphine Sulfate) 1 mg Q3H PRN IVP Mild Pain(1-3) 08/13/18 20:42 08/20/18 20:41 08/15/18 09:35 Morphine Sulfate (Morphine Sulfate) 2 mg Q3H PRN IVP Moderate Pain (Pain Scale 4-6) 08/13/18 20:42 08/20/18 20:41 08/14/18 19:45 Morphine Sulfate (Morphine Sulfate) 4 mg Q3H PRN IVP Severe Pain (Pain Scale 7-10) 08/13/18 20:42 08/20/18 20:41 08/15/18 05:23 Ondansetron HCl (Zofran) 4 mg Q6H PRN IVP Nausea & Vomiting 08/13/18 20:39 09/12/18 20:38 Piperacillin Sod/ Tazobactam Sod 3.375 gm/Sodium Chloride 110 ml @ 220 mls/hr EVERY 8 HOURS IVPB 08/14/18 05:00 08/21/18 04:59 08/15/18 05:13 Temazepam (Restoril) 15 mg HSPRN PRN ORAL Insomnia 08/13/18 21:00 08/20/18 20:59 Aristides Mendiola MD Aug 15, 2018 12:26
--- NOTE | 2018-08-15 12:32 | Surgery Progress Note ---
Surgery Progress Note Subjective Procedure Performed lap appy Additional Comments Patient doing well no complaints tolerating diet ambulatory states he feels much better. Leukocytosis resolved. Objective Last 24 Hour Vital Signs Date Time Temp Pulse Resp B/P (MAP) Pulse Ox O2 Delivery O2 Flow Rate FiO2 08/15/18 12:00 98.1 60 20 141/89 (106) 98 08/15/18 10:56 78 22 98 08/15/18 09:00 Room Air 08/15/18 08:00 97.9 81 20 124/73 (90) 98 08/15/18 04:00 98.0 63 20 120/73 (89) 99 08/15/18 00:00 98.1 60 18 120/69 (86) 99 08/14/18 21:00 Room Air 08/14/18 20:00 99.3 70 20 122/69 (86) 98 08/14/18 16:30 98.6 62 18 118/68 (85) 98 08/14/18 15:30 98.0 62 18 119/69 (86) 98 08/14/18 15:00 98.9 71 20 120/69 (86) 99 08/14/18 14:30 99.8 74 20 125/69 (87) 99 08/14/18 14:00 97.9 81 16 125/61 99 Nasal Cannula 3 08/14/18 13:45 81 16 112/67 99 Nasal Cannula 3 08/14/18 13:30 86 17 115/59 99 Simple Mask 6 08/14/18 13:20 85 18 110/54 99 Simple Mask 6 08/14/18 13:14 87 16 115/59 100 Simple Mask 6 08/14/18 13:09 88 22 110/57 100 Simple Mask 6 08/14/18 13:07 89 16 100 08/14/18 13:04 99.0 89 16 110/56 100 Simple Mask 6 I&O Intake and Output 08/14/18 08/15/18 19:00 07:00 Intake Total 1100 ml 220 ml Output Total 20 ml 300 ml Balance 1080 ml -80 ml Intake Oral 0 ml IV Total 1100 ml 220 ml Output Urine Total 300 ml Estimated Blood Loss 20 ml # Voids 3 Dressing: dry Wound: clean Cardiovascular: RSR Respiratory: clear Abdomen: soft, flat, non-tender, present bowel sounds Extremities: no edema, no tenderness, no cyanosis Laboratory Tests Test 08/15/18 05:54 White Blood Count 9.0 K/UL (4.8-10.8) Red Blood Count 4.08 M/UL (4.70-6.10) L Hemoglobin 12.6 G/DL (14.2-18.0) L Hematocrit 35.7 % (42.0-52.0) L Mean Corpuscular Volume 87 FL (80-99) Mean Corpuscular Hemoglobin 30.8 PG (27.0-31.0) Mean Corpuscular Hemoglobin Concent 35.3 G/DL (32.0-36.0) Red Cell Distribution Width 11.7 % (11.6-14.8) Platelet Count 213 K/UL (150-450) Mean Platelet Volume 7.0 FL (6.5-10.1) Neutrophils (%) (Auto) % (45.0-75.0) Lymphocytes (%) (Auto) % (20.0-45.0) Monocytes (%) (Auto) % (1.0-10.0) Eosinophils (%) (Auto) % (0.0-3.0) Basophils (%) (Auto) % (0.0-2.0) Prothrombin Time 9.7 SEC (9.30-11.50) Prothromb Time International Ratio 0.9 (0.9-1.1) Activated Partial Thromboplast Time 27 SEC (23-33) Sodium Level 139 MMOL/L (136-145) Potassium Level 3.8 MMOL/L (3.5-5.1) Chloride Level 106 MMOL/L (98-107) Carbon Dioxide Level 22 MMOL/L (21-32) Anion Gap 11 mmol/L (5-15) Blood Urea Nitrogen 16 mg/dL (7-18) Creatinine 1.3 MG/DL (0.55-1.30) Estimat Glomerular Filtration Rate > 60 mL/min (>60) Glucose Level 130 MG/DL (74-106) H Calcium Level 8.3 MG/DL (8.5-10.1) L Plan Problems: (1) Acute appendicitis Assessment & Plan: 43M acute appendicitis. low grade fevers, leukocytosis, RLQ focal tenderness Status post laparoscopic appendectomy Diet as tolerated Okay to shower Activity as tolerated Okay to discharge home from surgical standpoint Thank you Samuel Goncalves Aug 15, 2018 12:31
--- NOTE | 2018-08-15 14:15 | NUR ---
NURSE NOTES: patient discharged to home with fair condition. was bedside. a&Ox4. verbally responsive. no respiratory distress. no pain at this time. IV and ID removed. provided dc packet and obtained sign on the dc paper. checked and counted belongings with patient and got sign. new prescription given. patient wants to go to the his pharmacy for new med. surgical site on abd. intact. no bleeding. no s/sx of infection noted. f/u with dr. khoury in one week. given 's office number for appointment.
--- NOTE | 2018-08-15 14:37 | NUR ---
P.T Note: P.T evaluation completed. Pt is baseline independent in all aspect of functional activities therefore skilled P.T service is not warranted at this time. Encouraged patient OOB activities vs bedrest during stay. Pt verbalized understanding. No further P.T follow up needed.D/C P.T services.
[2018-08-15] MEDS ORDERED: Zoysn 3.37gm in NS 100ML IVPB SCH (15:00)
--- NOTE | 2018-08-16 10:47 | Discharge Summary ---
Discharge Summary Discharge Summary _ DATE OF ADMISSION: 08/13/2018 DATE OF DISCHARGE: 08/15/2018 DISCHARGED BY: Dr. Carlos Peter CONSULTANTS: Dr. Samuel Reynoso [facility] HOSPITAL COURSE: Patient is a 43-year-old male, who presented to ED due to mid abdominal pain. He denied any vomiting or diarrhea. He reported he was unable to sleep during the night as pain persisted. He denied any constipation. Denied any recent trauma. Denies chest pain or shortness of breath. Pain was described to be cramping in nature and sharp, 5 out of 10. On evaluation at the ED, vital signs were stable. Blood work showed leukocytosis with WBC elevated to 22. Hemoglobin and hematocrit were stable. Electrolytes were normal. Creatinine was elevated to 1.4. LFTs were normal. Lipase normal. CT of the abdomen and pelvis was positive for uncomplicated acute appendicitis. He was placed on n.p.o. and was admitted for further care. He was given IV hydration. He was started on IV antibiotics. He had low-grade fever. On 08/14/2018, he underwent laparoscopic appendectomy. Patient tolerated procedure well and was taken to postanesthetic care unit in stable condition. He was given postop care. He was placed on SCDs for DVT prophylaxis. He was encouraged use of incentive spirometry. He was continued on Zosyn. Was given pain management. Diet was advanced as tolerated. Postop day #1, patient was tolerating diet. He was ambulating well. Activity as tolerated. Leukocytosis resolved. He was cleared for discharge home. FINAL DIAGNOSES: Abdominal pain due to acute appendicitis status post laparoscopic appendectomy DISPOSITION: Patient was discharged home. DISCHARGE MEDICATIONS: Refer to Discharge Medication List. DISCHARGE INSTRUCTIONS: Follow-up in a week. I have been assigned to complete a discharge summary on this account, I was not involved with the patient's management. Isabella Mistry NP Aug 16, 2018 10:47
== END 2018-08-15 14:30 | disposition home or self-care (01) | DRG 234 ==
LOC: EMR 18:41 → 4E 20:18 → EDBEDREQ 20:31
PROC: 0DTJ4ZZ Resection of Appendix, Percutaneous Endoscopic Approach (ICD-10-PCS; principal; 2018-08-14 12:00)
DX: K35.80 Unspecified acute appendicitis (principal); E78.5 Hyperlipidemia, unspecified; E87.6 Hypokalemia; I10 Essential (primary) hypertension
CPT/HCPCS: 36415; 74177; 80048; 80053; 82248; 83690; 85007; 85025; 85610; 85730; 93005; 94003; 94150; 96361; 96365; 96375; 99285; J2250; J2405; J2765